=== PATIENT | female | born 1965 ===

== ENCOUNTER 2025-02-18 07:13 | Day surgery (SDC) | payer OTHER, SELFPAY ==
[2024-12-19 13:36] VITALS: BMI 27.2
[2025-02-07 12:45] VITALS: BMI 27.2
[2025-02-18 07:41] VITALS: BP 135/103; PULSE 81; RESP 16; TEMP 37.1; O2SAT 95
[2025-02-18] MEDS: LACTATED RINGERS 1,000 ML 150 ML IV CONT (07:48)
[2025-02-18] MEDS: SIMETHICONE ORAL SUSPENSION 20 MG/0.3 ML 30 ML BOTTLE 1.8 ML PO (07:55)
--- NOTE | 2025-02-18 08:48 | WPDANESEPPF ---
Anes - Initial Pre Proc Eval Procedure: Operation Date: 02/18/25 09:00 Proposed Procedures p Esophagogastroduodenoscopy - Juancarlos Baer MD Date/Time: 02/18/25 08:48 Surgeon: Juancarlos Baer MD Pre Op Diagnosis: Gerd Patient Data Age: 60 Gender: F Height: 1.68 m Weight: 78.65 kg Last Vital Signs Temp 98.8 F 02/18/25 07:41 Pulse 81 02/18/25 07:41 Resp 16 02/18/25 07:41 BP 135/103 H 02/18/25 07:41 Pulse Ox 95 02/18/25 07:41 O2 Del Method Room Air 02/18/25 07:41 Allergies Allergy/AdvReac Type Severity Reaction Status Date / Time levofloxacin Allergy Severe Anaphylaxis Verified 02/18/25 07:39 Home Medications ?Medication ?Instructions ?Recorded ?Confirmed ?Type acyclovir 400 mg tablet 400 mg PO DAILY 02/07/25 02/18/25 History albuterol 90 mcg/actuation aerosol 90 mcg inhalation .q4h PRN 02/07/25 02/18/25 History inhaler shortness of breath escitalopram oxalate 20 mg tablet 20 mg PO DAILY 02/07/25 02/18/25 History hydrochlorothiazide 25 mg tablet 25 mg PO DAILY 02/07/25 02/18/25 History ibuprofen 600 mg tablet 600 mg PO BID PRN pain 02/07/25 02/18/25 History losartan 50 mg tablet 50 mg PO DAILY 02/07/25 02/18/25 History mirtazapine 30 mg tablet 30 mg PO QPM 02/07/25 02/18/25 History omeprazole 20 mg capsule,delayed 20 mg PO DAILY 02/07/25 02/18/25 History release prazosin 2 mg capsule 2 mg PO HS 02/07/25 02/18/25 History Patient hx anesthesia problems: none Family hx anesthesia problems: none Results Review: All pre-operative results and documents have been reviewed as part of the pre-operative evaluation. [facility] Social History Social History Living arrangements: incarcerated Anes - Eval Final PreProcedure Day of Procedure 02/18/25 08:48 Heart: regular rate and rhythm Lungs: clear to auscultation Airway: Mallampati scale class II Neurological: alert and oriented Last oral intake: >/= 8 hours ASA classification: II Anesthetic plan: proceed Anesthesia type and monitoring: monitored anesthesia care Results Review: All pre-operative results and documents have been reviewed as part of the pre-operative evaluation. Informed Consent: The patient's anesthetic plan and its attendant risks and benefits were discussed with the patient/family/POA. Questions were solicited and answers provided to the satisfaction of the patient/family/POA.
--- NOTE | 2025-02-18 08:49 | PM.IMHP ---
H&P: HPI History of Present Illness Date/Time: 02/18/25 08:49 Chief Complaint: GERD Narrative: Patient with longstanding GERD, Omperazole depedent for years. No dysphagia, no weight loss. Associated epigastric burning very frequently. She is now referred for an EGD. Review of Systems Review of Systems: All systems reviewed & are unremarkable except as noted in HPI and below PMFSH Social History Social History Living arrangements: incarcerated Meds Home Medications and Allergies Home Medications ?Medication ?Instructions ?Recorded ?Confirmed ?Type acyclovir 400 mg tablet 400 mg PO DAILY 02/07/25 02/18/25 History albuterol 90 mcg/actuation aerosol 90 mcg inhalation .q4h PRN 02/07/25 02/18/25 History inhaler shortness of breath escitalopram oxalate 20 mg tablet 20 mg PO DAILY 02/07/25 02/18/25 History hydrochlorothiazide 25 mg tablet 25 mg PO DAILY 02/07/25 02/18/25 History ibuprofen 600 mg tablet 600 mg PO BID PRN pain 02/07/25 02/18/25 History losartan 50 mg tablet 50 mg PO DAILY 02/07/25 02/18/25 History mirtazapine 30 mg tablet 30 mg PO QPM 02/07/25 02/18/25 History omeprazole 20 mg capsule,delayed 20 mg PO DAILY 02/07/25 02/18/25 History release prazosin 2 mg capsule 2 mg PO HS 02/07/25 02/18/25 History Allergies Allergy/AdvReac Type Severity Reaction Status Date / Time levofloxacin Allergy Severe Anaphylaxis Verified 02/18/25 07:39 Vital Signs Vital Signs - 24 hr 02/18/25 07:41 Temperature 98.8 F Pulse Rate 81 Respiratory Rate 16 Blood Pressure 135/103 H Pulse Oximetry 95 Oxygen Delivery Room Air Exam Const: General: cooperative and healthy appearing Resp: Effort & Inspection: normal respiratory effort and able to speak in complete sentences Auscultation: clear to auscultation bilaterally Cardio: Rate: regular rate Rhythm: regular rhythm GI: Inspection: normal to inspection GI Palp: No No hepatosplenomegaly present Auscultation: normal bowel sounds Rectal Exam: deferred Skin: General skin exam: normal color Psych: Appearance: grossly normal Mental Status: mental status grossly normal Assessment and Plan Assessment and plan (1) GERD (gastroesophageal reflux disease): Code(s): K21.9 - Gastro-esophageal reflux disease without esophagitis Status: Acute Assessment and Plan: The patient is deemed a good candidate for the EGD. Consent signed. Will proceed.
--- NOTE | 2025-02-18 09:02 | WPDANESPN ---
Anes - Prog Note Post-Op Date/Time: 02/18/25 09:02 Vital Signs: Last Vital Signs Temp 98.8 F 02/18/25 07:41 Pulse 81 02/18/25 07:41 Resp 16 02/18/25 07:41 BP 135/103 H 02/18/25 07:41 Pulse Ox 95 02/18/25 07:41 O2 Del Method Room Air 02/18/25 07:41 Pain Score (VAS): no Patient Feedback: Patient satisfied with anesthetic care.
[2025-02-18 09:05] VITALS: BP 90/62; PULSE 75; RESP 14; O2SAT 98
[2025-02-18 09:15] VITALS: BP 91/72; PULSE 71; RESP 14; O2SAT 100
[2025-02-18 09:25] VITALS: BP 124/89; PULSE 65; RESP 16; O2SAT 100
== END 2025-02-18 09:39 | disposition home or self-care (01) ==
PROVIDERS: Visit Provider Internal Medicine Gastroenterology
PROC: 0DJ08ZZ Inspection of Upper Intestinal Tract, Via Natural or Artificial Opening Endoscopic (ICD-10-PCS; CPT 43239; principal; 2025-02-18 09:00)
DX: K21.00 Gastro-esophageal reflux disease with esophagitis, without bleeding (principal); K44.9 Diaphragmatic hernia without obstruction or gangrene; K29.30 Chronic superficial gastritis without bleeding; K31.7 Polyp of stomach and duodenum
CPT/HCPCS: 43239

== ENCOUNTER 2025-02-18 13:54 | Outpatient (NON) | payer OTHER, SELFPAY ==
--- NOTE | 2025-02-19 | S_PTH ---
PATIENT: Alberta Aguilar LOC: [facility] U#:[id number] AGE/SX: 60/F ROOM: RE02/18/[address]: Juancarlos Baer MD : 1965 BED: DIS: 02/18/2025 SPEC #: [id number] RECD: 02/20/25 07:16 STATUS: JADE RECarlos #: [id number] VANDANA: 02/19/25 00:[address]: Juancarlos Baer DEPT: [facility] Surgical RECD BY: Luana Boudreaux ENTERED: 02/20/25 07:17 SP TYPE: Surgical OTHR DR: UNKNOWN,DOCTOR Tissues: A - Gastric Biopsy B - Gastric Biopsy Procedures: Hematoxylin and Eosin Stain Gross and Microscopic Level 4
== END 2025-02-18 13:55 | disposition home or self-care (01) ==
PROVIDERS: Visit Provider Internal Medicine Gastroenterology
DX: K21.9 Gastro-esophageal reflux disease without esophagitis (principal)
CPT/HCPCS: 88305